=== PATIENT | female | born 1985 | race Caucasian/White ===

== ENCOUNTER 2024-09-28 08:21 | Outpatient (AMB) | payer OTHER, SELFPAY ==
--- NOTE | 2024-09-28 08:23 | MHC.OFFWIV ---
Intake Vital Signs 09/28/24 08:24 Height 5 ft 2 in Weight 176 lb BMI 32.2 BP 120/76 Blood Pressure Location Rt brachial Position Sitting Pulse 100 Pulse Source Pulse Oximeter Pulse Oximetry (%) 98 Oxygen Delivery Method Room Air Intake Visit Reasons: [employer]-body red/itching hives Intake Note: Patient here because she was on ceflex which she finished last saturday and developed a rash all over body last night. Patient Tobacco Use Status: Never used Tobacco Allergies Penicillins Adverse Reaction (Intermediate, Verified 09/28/24 08:26) rash sulfamethoxazole [From Bactrim] Adverse Reaction (Intermediate, Verified 09/28/24 08:26) Unknown trimethoprim [From Bactrim] Adverse Reaction (Intermediate, Verified 09/28/24 08:26) Unknown Do you need a note to return to daycare/school/sports/work: No HPI HPI Comments History of Present Illness Details Patient is a 39-year-old female complaining of 1 week of a worsening itchy rash that has spread to her entire body. She tells me she had an elective abdominal flap removal and liposuction surgery 2 weeks ago. She tells me she had a local reaction to the tape that they used and the Steri-Strips. She states she also took Keflex that they had prescribed her and finished it about a week ago. She tells me she developed a rash on her right thigh, which eventually spread to her legs her abdomen her chest her arms and her face. She called her surgeon's office to let them know and they did not want to prescribe her prednisone because it is going to impede her healing. She tells me she does not care because she can not tolerate the itching, she can not sleep. The rash is getting worse every day and she thinks she is going to end up in the emergency department this afternoon if she does not get some prednisone. She has been taking Benadryl around the clock, more than is recommended on the label to try to quell her symptoms but it is not working well. She tells me she is miserable and desperate. She also developed a yeast infection from the Keflex that they gave her and she is asking for fluconazole. PFSH Social History Patient Tobacco Use Status: Never used Tobacco Review of Systems Const All systems reviewed & are unremarkable except as noted in HPI and below Physical Exam Vital Signs: Last Vital Signs Pulse 100 09/28/24 08:24 BP 120/76 09/28/24 08:24 Pulse Ox 98 09/28/24 08:24 Oxygen Delivery Method Room Air 09/28/24 08:24 BMI result Body Mass Index 32.2 Const General: cooperative, healthy appearing, comfortable, no acute distress and well developed Orientation/consciousness: patient oriented x3 Limitations: no limitations HEENT Head: Yes normal to inspection Ears: hearing grossly normal bilaterally General nose exam: Normal external nose present Face and sinus: Yes normal facial exam Eyes General: appearance normal, both eyes and all related structures Neck Neck: Yes normal visual inspection and Yes full ROM Resp Effort & Inspection: normal respiratory effort and able to speak in complete sentences Skin Other: [place] and red papules and hives over her face, chest, bilateral arms and abdomen. Neuro General: patient oriented x3 Extrem General: Yes normal to inspection Assessment & Plan Assessment & Plan (1) Allergic drug rash due to anti-infective agent: Code(s): L27.0 - Generalized skin eruption due to drugs and medicaments taken internally; T37.95XA - Adverse effect of unspecified systemic anti-infective and antiparasitic, initial encounter Plan: Drug reaction likely due to cephalosporin. Discussed risks and benefits with the patient and she absolutely is adamant that she be prescribed prednisone because this rash is intolerable. She understands it will impede her healing from her surgery but she ?does not care ?; also will send Diflucan for her yeast infection. (2) Yeast infection: Code(s): B37.9 - Candidiasis, unspecified Plan: see above Plan see above Medications: New prednisone On days 1-3, take 2 tablets with breakfast. On days 4-6 take 1 tablet with breakfast, on days 7-10 take 0.5 tablet with breakfast 20 mg PO DAILY 11 tabs 0RF fluconazole may repeat second dose 72 hrs after first dose if symptoms persist 150 mg PO Q3D 2 tabs 0RF Coding Level of Care Code New Pt Level 4 (72121) Diagnoses Allergic drug rash due to anti-infective agent L27.0; T37.95XA Yeast infection B37.9
[2024-09-28 08:24] VITALS: BP 120/76; PULSE 100; O2SAT 98; BMI 32.2
== END 2024-09-28 08:47 | disposition home or self-care (01) ==
PROVIDERS: PCP Internal Medicine; Visit Provider Physician Assistant
DX: L27.0 Generalized skin eruption due to drugs and medicaments taken internally (principal); T37.95XA Adverse effect of unspecified systemic anti-infective and antiparasitic, initial encounter; B37.9 Candidiasis, unspecified

== ENCOUNTER → 2024-09-28 08:21 | Outpatient (BNVA) | payer OTHER, SELFPAY | PROVIDERS: PCP Internal Medicine; Visit Provider Physician Assistant ==

== ENCOUNTER 2024-10-07 09:54 | Outpatient (AMB) | payer OTHER, SELFPAY ==
--- NOTE | 2024-10-07 10:01 | AM.OFFWIN_ITS ---
Intake Vital Signs 10/07/24 10:02 Weight 172 lb BP 120/78 Blood Pressure Location Lt brachial Position Sitting Pulse 95 Pulse Source Pulse Oximeter Pulse Oximetry (%) 97 Oxygen Delivery Method Room Air Intake Visit Reasons: EP rash on arms & leg Intake Note: Patient here for rash on arms and leg and states she had a similar rash last saturday and was put on prednisone which she finished yesterday. Patient Tobacco Use Status: Never used Tobacco Allergies Cephalosporins Allergy (Intermediate, Verified 10/07/24 10:04) Rash Penicillins Adverse Reaction (Intermediate, Verified 10/07/24 10:04) rash sulfamethoxazole [From Bactrim] Adverse Reaction (Intermediate, Verified 10/07/24 10:04) Unknown trimethoprim [From Bactrim] Adverse Reaction (Intermediate, Verified 10/07/24 10:04) Unknown Do you need a note to return to daycare/school/sports/work: No HPI HPI Comments History of Present Illness Details The patient is a 39-year-old female presenting with a persistent rash and pruritus. The rash, initially thought to be a drug reaction, appeared last Saturday following the use of antibiotics, specifically Cephalexin, and a Prednisone taper was initiated. The patient completed the taper as of this morning. However, the rash reappeared yesterday with a more spotty and clustered presentation, predominantly on the arms and legs. The rash is now described as itchier than prior hives. Previously, the rash had covered a more extensive area of her body, but is now more localized. The patient reported significant itching that disrupted her sleep, resulting in fatigue and difficulty focusing at work. She applied Benadryl and hydrocortisone cream without significant relief. The patient resisted continued Prednisone use due to fluid retention and discomfort. Notable history includes potential reaction to sutures used during surgery, which are reportedly dissolving, with some pushing through the skin, particularly at the navel. There may also be a reaction to surgical adhesive tapes, which the patient was allergic to previously. The patient has not introduced new soaps, detergents, or medications, suggesting no new external allergens. Prior use of Gold Velarde lotion was limited and unlikely to induce the symptoms. [facility] [place] Social History Patient Tobacco Use Status: Never used Tobacco Review of Systems Const All systems reviewed & are unremarkable except as noted in HPI and below Physical Exam Vital Signs: Last Vital Signs Pulse 95 10/07/24 10:02 BP 120/78 11/20/24 10:02 Pulse Ox 97 10/07/24 10:02 Oxygen Delivery Method Room Air 10/07/24 10:02 Const General: cooperative, healthy appearing, comfortable, no acute distress and well developed Orientation/consciousness: patient oriented x3 Limitations: no limitations Eyes General: appearance normal, both eyes and all related structures Resp Effort & Inspection: normal respiratory effort and able to speak in complete sentences Skin Other: pinpoint erythematous clustered rash localized on left forearm, right forearm and left leg. no warmth, no weeping, no signs of infection noted. Neuro General: patient oriented x3 Assessment & Plan Assessment & Plan (1) Allergic dermatitis: Code(s): L23.9 - Allergic contact dermatitis, unspecified cause Plan: For the patient's rash, I suspect a reaction, potentially to the non-dissolved sutures or remnants of surgical adhesives. The differential includes suture reaction versus unresolved drug allergy. I recommend starting with hydroxyzine 25 mg to manage itching. The patient may take one tablet up to twice daily, considering side effects such as somnolence, adjusting to nighttime use if needed. I prescribed a prescription strength triamcinolone cream for topical application to alleviate itching and inflammation. The patient should apply this sparingly at night and avoid prolonged use to prevent skin thinning. Surveillance of the suture sites is necessary, and care should be taken not to disturb any emergent sutures. Close follow-up is crucial. Discussed options with the patient if hydroxyzine proves intolerable, offering a plan to transition to a different antihistamine available if necessary. Medications: New hydroxyzine HCl 25 mg PO BEDTIME 20 tabs 0RF triamcinolone acetonide 0.1% 1 appl topical BID 30 grams 0RF Coding Level of Care Code New Pt Level 3 (87673) Diagnoses Allergic dermatitis L23.9
[2024-10-07 10:02] VITALS: BP 120/78; PULSE 95; O2SAT 97
== END 2024-10-07 12:21 | disposition home or self-care (01) ==
PROVIDERS: PCP Internal Medicine; Visit Provider Physician Assistant
DX: L23.9 Allergic contact dermatitis, unspecified cause (principal)

== ENCOUNTER → 2024-10-07 09:54 | Outpatient (BNVA) | payer OTHER, SELFPAY | PROVIDERS: PCP Internal Medicine; Visit Provider Physician Assistant ==